=== PATIENT | male | born 2000 | race Caucasian/White ===

== ENCOUNTER 2023-05-20 08:10 | Emergency (ER) | payer BC, SELFPAY ==
[2023-05-20 08:12] VITALS: BP 138/92
[2023-05-20 08:33] VITALS: BMI 25.5
--- NOTE | 2023-05-20 08:51 | ED.GENMED ---
History of Present Illness
General
Chief Complaint: Musculo-Skeletal Complaint
Source: patient
Exam Limitations: none
Time Seen by Provider: 05/20/23 08:23
Nursing documentation reviewed up to this point in time: agreed with
Travel History
Have you had any contact with someone who has COVID-19?: No
Do you have any symptoms of coronavirus? Fever > 100 degrees, chills, cough, shortness of breath, sore throat, loss of taste or smell, muscle aches, or headache?: No
History of Present Illness
History of Present Illness:
Patient presents to ED secondary to persistent right forearm pain, after he accidentally swung his arm upwards and hit the door of open open trunk yesterday afternoon. Denies any other injuries. Denies fever. Denies loss of sensation or weakness.
Past History
Past History
ED Past Medical History: None; Negative Asthma, HTN, Hypercholesterolemia or NIDDM
ED Past Surgical History: None
Patient has exhibited threatening behavior?: No
Social History
Tobacco: Smoker
Alcohol: None
Drug: None
Personal: Single
Living: with family
Employment: Employed
Review of Systems
Review of Systems
Allergies reviewed?: Yes
All Other Systems: ROS reviewed and negative except as documented in HPI and ROS
Constitutional: Reports no symptoms
Musculoskeletal: Reports other (forearm pain w swelling)
Skin: Reports no symptoms
Neurological: Reports no symptoms
Phy Exam
Physical Exam
Physical Exam:
Physical Exam
General: no apparent distress, not acutely ill. afebrile.
Head: nc/at. eomi
Neck: supple. normal range of motion.
Neuro: alert and oriented. no focal neurological deficits
Skin: no rash
Psychiatric: well kept. interactive and cooperative
Extremities: mild tenderness/swelling noted over right midforearm along ulnar aspect, prox to wrist.
Course
Orders/Labs/Results
Orders:
Orders
05/20/23 08:16
Forearm, Right 2 View [CR Forearm - Right 2 View] Urgent
Comment:
Reason For Exam: pain after injury
05/20/23 08:50
[place] Wrist Right-Tx ONCE
Vital Signs
Initial and Last Documented VS:
Initial Vital Signs
Temp Pulse Resp BP Pulse Ox
98.1 F 98 20 138/92 98
05/20/23 08:12 05/20/23 08:12 05/20/23 08:12 05/20/23 08:12 05/20/23 08:12
Last Documented Vital Signs
Temp Pulse Resp BP Pulse Ox
97.6 F 86 16 132/81 99
05/20/23 09:17 05/20/23 09:17 05/20/23 09:17 05/20/23 09:17 05/20/23 09:17
MDM/Problems Addressed
MDM/Problems Addressed:
X-ray: No acute findings.
History exam consistent with likely forearm contusion. Patient otherwise remains neurovascularly intact. Patient be provided with universal Velcro wrist splint for symptomatic relief, along with recommendation to keep the forearm elevated, NSAIDs,
along with ice application at home. Advised PCP follow-up as an outpatient, if symptoms persist.
*Radiology
Radiology exam reviewed: radiology read reviewed
*Critical Care Note
Total Time (30-74mins, 75-104mins- exclusive of procedures): Not Applicable
ED Attending Note
-
Portions of this chart may have been created with voice recognition software.� Occasional wrong word or��sound alike� substitutions may have occurred due to the inherent limitations of voice recognition software.
Discharge Plan
Departure
Patient Disposition: Home (Routine Discharge)
Date of Disposition: 05/20/23
Time of Disposition: 08:54
Patient with high blood pressure during this ER visit?: Yes
Discharge Problem:
Contusion of forearm, right
Instructions: Contusion (DC)
Prescriptions:
No Action
ibuprofen 600 MG tablet
600 mg PO Q6H Qty: 30 0RF
Referrals:
NONE,* [Family Provider] -
Activity Restrictions/Additional Instructions:
As discussed, please follow-up with your primary care physician with any further concerns. Please continue to keep the affected arm elevated, along with use of NSAIDs, i.e. Advil/Motrin, along with provided wrist splint. In ED, x-ray did not
reveal any acute abnormalities.
Interventions
Interventions:
*Risk Screen - Suicide Last Done: 05/20/23 08:33
*General Assessment Last Done: 05/20/23 08:33
*Neglect/Abuse Screening Last Done: 05/20/23 08:33
ED- Fall Risk Assessment Last Done: 05/20/23 08:33
*ED COVID-19 Vaccine History Last Done: 05/20/23 08:33
*Nursing Disposition Last Done: 05/20/23 09:17
ED-Musculoskeletal Assessment Last Done: 05/20/23 08:33
Discharge Date and Time
Discharge Date/Time: 05/20/23 09:17
Print Language: MONGOLIAN
[2023-05-20 09:17] VITALS: BP 132/81
== END 2023-05-20 09:17 | disposition home or self-care (01) ==
LOC: EMR 08:10
PROVIDERS: EMERGENCY PHYSICIAN Emergency Medicine
DX: S50.11XA Contusion of right forearm, initial encounter (principal); W22.09XA Striking against other stationary object, initial encounter; R03.0 Elevated blood-pressure reading, without diagnosis of hypertension; F17.200 Nicotine dependence, unspecified, uncomplicated
CPT/HCPCS: 99283; 29125; 73090